=== PATIENT | male | born 1960 | race Two or more races ===

== ENCOUNTER 2018-08-06 10:36 | Emergency (ER) | payer MEDICARE ==
[~2018-08-06 10:36] MED LIST: ADV100/50 INH; ADVIL PO; AUG500 PO; BACDS PO; DAP500I IV; DIP25 PO; DOC100 PO; FESO4 PO; FLUO-201 PO; FOLTX PO; FUR40 PO; FURO-1 PO; HYDR2TAB41 PO; IBU200 PO; IBUP400T13 PO; LACT10SO58 PO; MAGN400T37 PO; MOM PO; MULT-767 PO; MULT1CAP41 PO; NOR10/325 PO; OXYC10TA PO; OXYGEN INH; OXYIR PO; PAN40 PO; PER PO; POT20 PO; POTA10CA61 PO; POTA2.5T7 PO; POTA75TA PO; PSYL1PAC24 PO; SEN100 PO; SPIR100T31 PO; SPIR50TA31 PO; SUC1 PO; THIA20TA PO; TUM500 PO; VITA100C12 PO; VITA1CAP46 PO; [UNRECOGNIZED DRUG - CODE] PO; [UNRECOGNIZED DRUG - CODE] PO; no rtn meds; potassium
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
[2018-08-06 11:29] LABS: PLATELET COUNT, AUTOMATED 134 K/uL (150-450)
[2018-08-06] MEDS ORDERED: IOPAMIDOL 76% 100 ML INFUS BTL 100 ML ONE (11:42)
--- NOTE | 2018-08-06 12:25 | EKG ---
FACILITY: [facility] PATIENT NAME: DIANELYS NEVAREZ : [id number] MR: [id number] V: [id number] EXAM DATE: ORDERING PHYSICIAN: DWAYNE STEWART TECHNOLOGIST: [employer] Reason : RESPIRATORY Blood Pressure : / mmHG Vent. Rate : 064 BPM Atrial Rate : 064 BPM P-R Int : 190 ms QRS Dur : 092 ms QT Int : 406 ms P-R-T Axes : 055 006 060 degrees QTc Int : 418 ms Normal sinus rhythm Normal ECG When compared with ECG of 20-JUL-2012 22:04, No significant change was found Confirmed by DALIA PHILIP ([id number]) on 08/07/2018 6:23:22 AM Referred By: CHRISTY Confirmed By:DALIA PHILIP
[2018-08-06 12:30] VITALS: BP 135/73
--- NOTE | 2018-08-06 12:45 | RADIOLOGY IMAGING REPORT ---
FACILITY: [facility] [place] PATIENT NAME: Jose Rosen : 1960 MR: [id number] V: [id number] EXAM DATE: ORDERING PHYSICIAN: DWAYNE STEWART TECHNOLOGIST: Location: [facility] Patient: Jose Rosen : 1960 Visit/Account:[id number] Date of Sevice: 08/06/2018 CT CHEST (CONTRAST) Indication: shortness of breath left-sided pain for 4 days. Comparison: None. TECHNIQUE: CT thoracic inlet through the adrenal glands obtained with IV contrast. One of the followi dose optimization techniques was utilized in the performance of this exam: automated exposure cont rol; adjustment of the mA and/or kV according to the patient's size; or use of an iterative reconstru ction technique. Specific details can be referenced in the facility's radiology CT exam operational policy. Contrast: 75 cc Isovue-370. FINDINGS: Lungs: The right hemidiaphragm is elevated. The lungs are clear. Subsegmental atelectasis/scar is seen in the right lower lobe. Mediastinum/heart: Heart size is normal. There is no pericardial effusion. There is no right or le ft hilar adenopathy. Great vessels are normal. Musculoskeletal / Body wall: Negative Lower neck: Negative Upper abdomen: There is mild splenomegaly. Gallstones are noted. IMPRESSION: 1. Elevated right hemidiaphragm, not likely clinically significant. 2. No focal airspace opacity or pneumonia. 3. Cholelithiasis. 4. Splenomegaly. 5. No evidence of right or left rib fracture. Report Dictated By: Moe Alvarado at 08/06/2018 12:34 PM Report E-Signed By: Moe Alvarado at 08/06/2018 12:40 PM WSN:[email or web address]
[2018-08-06] MEDS ORDERED: KET10 PO (13:09)
== END 2018-08-06 13:40 | disposition home or self-care (01) ==
LOC: ER 11:02
DX: R16.1 Splenomegaly, not elsewhere classified (principal); B34.9 Viral infection, unspecified; R06.02 Shortness of breath
CPT/HCPCS: 71260; 83880; 84484; 85025; 93005; 99284; Q9967; 82040; 82247; 82310; 82374; 82435; 82565; 82947; 84075; 84132; 84155; 84295; 84450; 84460; 84520